=== PATIENT | male | born 1955 | race African-American/Black ===

== ENCOUNTER 2017-10-26 12:15 | Emergency (ER) | payer MEDICARE, MEDICAID ==
[~2017-10-26] VITALS: Ht 175.3 cm; Wt 82.0 kg
[~2017-10-26 12:15] MED LIST: ASPI-1159 PO; BIDIL; COR3 PO; FURO-151 PO; LISI-186 PO; SPIR25TA6 BU; WARF7.5T22 PO
[2017-10-26] MEDS ORDERED: IPRATROPIUM/ALBUTEROL 0.5-3(2.5)MG/3ML NEB HHN ONE (15:00)
[2017-10-26] MEDS ORDERED: METHYLPREDNISOLONE SOD SUCC 125 MG/2 ML VIAL IV ONE (15:00)
[2017-10-26 15:29] LABS: BASOPHILS % 0.4 % (0.0-2.0); EOSINOPHILS % 1.7 % (0.0-5.0); HEMATOCRIT. 46.8 % (42.0-52.0); HEMOGLOBIN. 15.7 g/dL (14.0-18.0); LYMPHOCYTES % 49.3 % (20.0-50.0); MEAN CORPUSCULAR HEMOGLOBIN 31.8 pg (28.0-32.0); MEAN CORPUSCULAR VOLUME 95.2 fL (80.0-94.0); MEAN PLATELET VOLUME 7.5 fl (7.4-10.4); MONOCYTES % 10.2 % (2.0-8.0); NEUTROPHILS % 38.4 % (40.0-76.0); PLATELET 293 x1000/uL (130-400); RED BLOOD CELL COUNT 4.92 mill/uL (4.7-6.1)
[2017-10-26 15:37] LABS: CHLORIDE 104 mEq/L (98-107)
[2017-10-26 15:38] LABS: INR 1.2; PROTHROMBIN TIME 11.9 sec (9.1-11.1)
[2017-10-26 16:52] VITALS: BP 152/98
== END 2017-10-26 16:55 | disposition left against medical advice (07) ==
LOC: ER 13:03
DX: J44.1 Chronic obstructive pulmonary disease with (acute) exacerbation (principal); R06.00 Dyspnea, unspecified; I50.9 Heart failure, unspecified; R03.0 Elevated blood-pressure reading, without diagnosis of hypertension; F17.200 Nicotine dependence, unspecified, uncomplicated; R94.31 Abnormal electrocardiogram [ECG] [EKG]; R79.89 Other specified abnormal findings of blood chemistry; Z88.0 Allergy status to penicillin; Z79.01 Long term (current) use of anticoagulants; Z79.82 Long term (current) use of aspirin
CPT/HCPCS: 36415; 71045; 80053; 83880; 84484; 85025; 85610; 93005; 94640; 96374; 99285; J2930; J7620